=== PATIENT | female | born 1980 | race Asian ===

== ENCOUNTER 2017-01-03 16:30 | Observation (INO) | payer SELFPAY ==
[~2017-01-03] VITALS: Ht 165 cm; Wt 66.2 kg
[2017-01-03 17:30] VITALS: BP 108/56
[2017-01-03] MEDS ORDERED: CALC600T16 PO (18:10)
[2017-01-03] MEDS ORDERED: TERBUTALINE 1 MG/ML VIAL SUBQ ONE (18:34)
[2017-01-03] MEDS: TERBUTALINE 1 MG/ML VIAL SUBQ SCH ×2 (18:34→19:41)
== END 2017-01-03 20:50 | disposition home or self-care (01) ==
LOC: MLD 16:30
PROVIDERS: ADMIT Obstetrics & Gynecology; ATTEND Obstetrics & Gynecology
DX: O26.893 Other specified pregnancy related conditions, third trimester (principal); R10.9 Unspecified abdominal pain; Z3A.33 33 weeks gestation of pregnancy
CPT/HCPCS: 81000; 96372; G0378; J3105

== ENCOUNTER 2017-01-20 08:45 | Inpatient (IN) | payer SELFPAY ==
[~2017-01-20] VITALS: Ht 165.1 cm; Wt 77.1 kg
[~2017-01-20 08:45] MED LIST: SUPER CALCIUM600 MG PO
[2017-01-20] MEDS ORDERED: BETAMETH ACET/BETAMETH NA PH 30 MG/5 ML VIAL IM ONE ×2 (09:15→09:45)
[2017-01-20] MEDS ORDERED: PRENATAL LOW IR1 TA1 PO (09:48)
[2017-01-20] MEDS ORDERED: OXYTOCIN 20 UNITS in LACTATED RINGERS 1,000 ML IV SCH (09:55)
[2017-01-20] MEDS ORDERED: OXYTOCIN 10 UNITS/ML VIAL IM SCH (10:00)
[2017-01-20] MEDS ORDERED: CITRIC ACID/SODIUM CITRATE 30 ML UDC PO SCH (10:00)
[2017-01-20 10:41] VITALS: BP 116/69
[2017-01-20] MEDS ORDERED: MISOPROSTOL 100 MCG TAB ONE (10:52)
[2017-01-20] MEDS ORDERED: OXYTOCIN 10 UNITS/ML VIAL ONE (10:52)
[2017-01-20] MEDS ORDERED: TRIAMCINOLONE 10 MG/ML 5ML VIAL ONE (10:52)
[2017-01-20] MEDS ORDERED: METHYLERGONOVINE 0.2 MG/ML AMP ONE (10:52)
[2017-01-20] MEDS ORDERED: BUPIVACAINE-MPF 0.75% 10 ML VIAL INJ ONE (12:00)
[2017-01-20] MEDS ORDERED: ePHEDrine 50 MG/ML VIAL ONE (12:00)
[2017-01-20] MEDS ORDERED: ONDANSETRON 4 MG/2 ML VIAL ONE (12:00)
[2017-01-20] MEDS ORDERED: MORPHINE PRES FREE 10 MG/10 ML AMP IV ONE (12:23)
[2017-01-20] MEDS ORDERED: fentaNYL 0.05 MG/ML VIAL ONE (12:23)
[2017-01-20] MEDS ORDERED: MIDAZOLAM 2 MG/2 ML VIAL ONE (12:23)
[2017-01-20] MEDS ORDERED: KETAMINE 500 MG/5 ML VIAL ONE (12:23)
[2017-01-20] MEDS ORDERED: diphenhydrAMINE 50 MG/ML VIAL IVP PRN (12:45)
[2017-01-20] MEDS ORDERED: ONDANSETRON 4 MG/2 ML VIAL IVP PRN (12:45)
[2017-01-20] MEDS ORDERED: KETOROLAC 30 MG/ML VIAL IVP PRN ×2 (12:45→15:55)
[2017-01-20] MEDS ORDERED: LACTATED RINGERS 1,000 ML IV SCH (13:04)
[2017-01-20] MEDS ORDERED: PROMETHAZINE 25 MG/ML VIAL IVP PRN (13:05)
[2017-01-20] MEDS ORDERED: NALBUPHINE HYDROCHLORIDE 10 MG/ML VIAL IVP PRN (13:05)
[2017-01-20] MEDS ORDERED: OXYTOCIN 10 UNITS in LACTATED RINGERS 1,000 ML IV SCH (13:41)
[2017-01-20] MEDS ORDERED: TEMAZEPAM 15 MG CAP PO PRN (13:45)
[2017-01-20] MEDS ORDERED: TRIMETHOBENZAMIDE 200 MG/2 ML SYR IM PRN (13:45)
[2017-01-20] MEDS ORDERED: METHYLERGONOVINE 0.2 MG/ML AMP IM PRN (13:45)
[2017-01-20] MEDS ORDERED: MEASLES, MUMPS, AND RUBELLA 1 VIAL SQVAC PRN (13:45)
[2017-01-20] MEDS ORDERED: KETOROLAC 30 MG/ML VIAL ONE (16:06)
[2017-01-20] MEDS ORDERED: DOCUSATE SOD/SENNA 50/8.6 MG 1 TAB PO SCH (21:00)
[2017-01-20] MEDS ORDERED: SENNA 8.6 MG TAB PO SCH (21:00)
[2017-01-20] MEDS: BISACODYL 5 MG TABEC PO SCH (21:00)
[2017-01-21] MEDS ORDERED: OXYTOCIN 20 UNITS/LR PREMIX 1,000 ML IV ONE (05:08)
[2017-01-21] MEDS: OXYTOCIN 20 UNITS in LACTATED RINGERS 1,000 ML IV SCH ×2 (07:36)
--- NOTE | 2017-01-21 08:43 | NUR ---
PATIENT HAS BEEN SCREENED AND CATEGORIZED LOW NUTRITION RISK. PATIENT WILL BE SEEN WITHIN 7 DAYS OF ADMISSION. 01/26/[address]
[2017-01-21] MEDS ORDERED: SODIUM PHOSPHATE 118 ML ENEM RC SCH (09:00)
[2017-01-21] MEDS ORDERED: BISACODYL 10 MG SUPP RC SCH (09:00)
[2017-01-21] MEDS: oxyCODONE/APAP 5/325 MG 1 TAB TAB PO PRN (11:59)
[2017-01-21] MEDS ORDERED: SODIUM PHOSPHATE 118 ML ENEM RC PRN (12:25)
[2017-01-21] MEDS ORDERED: KETOROLAC 30 MG/ML VIAL IVP SCH (14:10)
[2017-01-21] MEDS: HYDROcodone/APAP 5/325 MG 1 TAB TAB PO PRN (20:10)
[2017-01-21] MEDS: BISACODYL 5 MG TABEC PO SCH (21:05)
[2017-01-22] MEDS: HYDROcodone/APAP 5/325 MG 1 TAB TAB PO PRN ×2 (04:22→20:18)
[2017-01-22] MEDS: BISACODYL 5 MG TABEC PO SCH ×2 (08:27→20:17)
[2017-01-22] MEDS: oxyCODONE/APAP 5/325 MG 1 TAB TAB PO PRN ×3 (08:27→22:19)
[2017-01-22] MEDS: SIMETHICONE 80 MG TAB.CHEW PO PRN (08:28)
[2017-01-22] MEDS ORDERED: BISACODYL 10 MG SUPP RC PRN (09:00)
[2017-01-23] MEDS: oxyCODONE/APAP 5/325 MG 1 TAB TAB PO PRN ×3 (03:40→15:59)
[2017-01-23] MEDS: BISACODYL 5 MG TABEC PO SCH (08:14)
[2017-01-23] MEDS: SIMETHICONE 80 MG TAB.CHEW PO PRN (08:14)
[2017-01-23] MEDS: HYDROcodone/APAP 5/325 MG 1 TAB TAB PO PRN (11:40)
== END 2017-01-23 20:30 | disposition home or self-care (01) | DRG 765 ==
LOC: MLD 08:45 → MFCC 18:10
PROVIDERS: ADMIT Obstetrics & Gynecology; ATTEND Obstetrics & Gynecology
PROC: 10D00Z1 Extraction of Products of Conception, Low, Open Approach (ICD-10-PCS; principal; 2017-01-20 11:30)
DX: O99.02 Anemia complicating childbirth (principal); O30.003 Twin pregnancy, unspecified number of placenta and unspecified number of amniotic sacs, third trimester; D64.9 Anemia, unspecified; Z37.2 Twins, both liveborn; O09.293 Supervision of pregnancy with other poor reproductive or obstetric history, third trimester; O09.523 Supervision of elderly multigravida, third trimester; Z3A.36 36 weeks gestation of pregnancy; Z90.79 Acquired absence of other genital organ(s); Z28.21 Immunization not carried out because of patient refusal